=== PATIENT | female | born 1970 | race Caucasian/White ===

== ENCOUNTER 2018-12-13 12:09 | Emergency (ER) | payer OTHER ==
[~2018-12-13] VITALS: Ht 167.6 cm; Wt 72.6 kg
[2018-12-13] MEDS ORDERED: ADDERALL XR 3030 MG PO (13:32)
[2018-12-13] MEDS ORDERED: OXYCODONE HCL15 MG PO (13:32)
[2018-12-13] MEDS ORDERED: NORCO 5-325 TA1 EAC1 PO (13:32)
[2018-12-13] MEDS ORDERED: IMITREX6 MG/0.5 M (13:33)
[2018-12-13] MEDS ORDERED: PHENERGAN 25 MG25 M1 PO (13:33)
[2018-12-13] MEDS ORDERED: IBUPROFEN 800800 MG PO (14:38)
[2018-12-13 15:13] VITALS: BP 128/76
--- NOTE | 2018-12-16 16:48 | EKG ---
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
== END 2018-12-13 15:13 | disposition home or self-care (01) ==
LOC: M.ERS 12:09
DX: G43.909 Migraine, unspecified, not intractable, without status migrainosus (principal); Z88.0 Allergy status to penicillin; Z88.1 Allergy status to other antibiotic agents; Z88.5 Allergy status to narcotic agent

== ENCOUNTER 2019-04-13 13:35 | Emergency (ER) | payer OTHER ==
[~2019-04-13] VITALS: Ht 167.6 cm; Wt 72.6 kg
[~2019-04-13 13:35] MED LIST: ADDERALL XR 3030 MG PO; IBUPROFEN 800800 MG PO; IMITREX6 MG/0.5 M; NORCO 5-325 TA1 EAC1 PO; OXYCODONE HCL15 MG PO; PHENERGAN 25 MG25 M1 PO
[2019-04-13 13:49] VITALS: BP 131/87
[2019-04-13] MEDS ORDERED: PROTONIX40 M3 PO (13:52)
[2019-04-13] MEDS ORDERED: NORCO 5-325 TA1 EAC1 PO (14:46)
== END 2019-04-13 14:53 | disposition home or self-care (01) ==
LOC: M.ERS 13:35
DX: S93.492A Sprain of other ligament of left ankle, initial encounter (principal); G43.909 Migraine, unspecified, not intractable, without status migrainosus; K21.9 Gastro-esophageal reflux disease without esophagitis; Z98.890 Other specified postprocedural states; Z86.73 Personal history of transient ischemic attack (TIA), and cerebral infarction without residual deficits; Z88.1 Allergy status to other antibiotic agents; Z88.6 Allergy status to analgesic agent; Z88.0 Allergy status to penicillin; X50.0XXA Overexertion from strenuous movement or load, initial encounter; Y93.02 Activity, running; Y92.89 Other specified places as the place of occurrence of the external cause; Y99.8 Other external cause status

== ENCOUNTER 2019-04-30 19:42 | Emergency (ER) | payer OTHER ==
[~2019-04-30] VITALS: Ht 165.1 cm; Wt 73.9 kg
[~2019-04-30 19:42] MED LIST changes: +PROTONIX40 M3 PO
[2019-04-30] MEDS ORDERED: PHENERGAN 25 MG25 M1 PO (20:20)
[2019-04-30] MEDS ORDERED: SUPER THERAVIT1 EACH PO (20:20)
[2019-04-30] MEDS ORDERED: CYCLOBENZAPRINE5 MG PO (21:42)
[2019-04-30 22:23] VITALS: BP 125/68
== END 2019-04-30 22:24 | disposition home or self-care (01) ==
LOC: M.ERS 19:42
DX: S43.491A Other sprain of right shoulder joint, initial encounter (principal); S20.211A Contusion of right front wall of thorax, initial encounter; M25.552 Pain in left hip; G43.909 Migraine, unspecified, not intractable, without status migrainosus; K21.9 Gastro-esophageal reflux disease without esophagitis; Z98.890 Other specified postprocedural states; Z88.6 Allergy status to analgesic agent; Z88.1 Allergy status to other antibiotic agents; Z88.0 Allergy status to penicillin; W10.8XXA Fall (on) (from) other stairs and steps, initial encounter; Y93.01 Activity, walking, marching and hiking; Y92.89 Other specified places as the place of occurrence of the external cause; Y99.8 Other external cause status

== ENCOUNTER 2019-08-01 12:14 | Emergency (ER) | payer OTHER ==
[~2019-08-01] VITALS: Ht 167.6 cm; Wt 70.3 kg
[~2019-08-01 12:14] MED LIST changes: +CYCLOBENZAPRINE5 MG PO; +SUPER THERAVIT1 EACH PO
[2019-08-01] MEDS ORDERED: ADVAIR 100-501 EACH INH (12:30)
[2019-08-01] MEDS ORDERED: ADDERALL 10 MG10 MG PO (12:30)
[2019-08-01] MEDS ORDERED: ADVIL200 M1 PO (12:31)
[2019-08-01] MEDS ORDERED: PROAIR HFA8.5 GM INH (12:31)
[2019-08-01 12:54] LABS: INFLUENZA A ANTIGEN Negative (Negative); INFLUENZA B ANTIGEN Negative (Negative)
[2019-08-01] MEDS ORDERED: MEDROLDOSEPACK PO (14:29)
[2019-08-01 14:44] VITALS: BP 137/87
--- NOTE | 2019-08-01 16:53 | EKG ---
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1970 Requested By: Bernadette Mortensen Order Number: [id number] MD: John Graham Measurements Intervals [place] Rate: 65 P: 64 [place]: 151 QRS: 38 QRSD: 123 T: 22 QT: 423 QTc: 440 Interpretive Statements Sinus rhythm Nonspecific intraventricular conduction delay Borderline T abnormalities, anterior leads Baseline wander in lead(s) V3,V5 Compared to ECG 12/13/2018 12:49:42 Intraventricular conduction delay now present T-wave abnormality still present Electronically Signed On 08-01-2019 16:51:48 CDT by John Graham [email or web address] <ELECTRONICALLY SIGNED> By: John Graham MD, FACC 08/01/19 1651 1252 1252 John Graham MD, FAC /EPI
== END 2019-08-01 14:45 | disposition home or self-care (01) ==
LOC: M.ERS 12:14
PROVIDERS: Physician Assistant
DX: B34.9 Viral infection, unspecified (principal); R09.82 Postnasal drip; J02.9 Acute pharyngitis, unspecified; G43.909 Migraine, unspecified, not intractable, without status migrainosus; K21.9 Gastro-esophageal reflux disease without esophagitis; Z88.1 Allergy status to other antibiotic agents; Z88.0 Allergy status to penicillin; Z88.5 Allergy status to narcotic agent; Z86.73 Personal history of transient ischemic attack (TIA), and cerebral infarction without residual deficits; Z79.899 Other long term (current) drug therapy

== ENCOUNTER 2020-04-24 17:07 | Emergency (ER) | payer OTHER ==
[~2020-04-24] VITALS: Ht 165.1 cm; Wt 67.1 kg
[~2020-04-24 17:07] MED LIST changes: +ADDERALL 10 MG10 MG PO; +ADVAIR 100-501 EACH INH; +ADVIL200 M1 PO; +MEDROLDOSEPACK PO; +PROAIR HFA8.5 GM INH
[2020-04-24] MEDS ORDERED: BUSPIRONE HCL10 MG PO (17:24)
[2020-04-24 17:55] LABS: INFLUENZA A ANTIGEN Negative (Negative); INFLUENZA B ANTIGEN Negative (Negative)
[2020-04-24 18:11] VITALS: BP 140/72
== END 2020-04-24 18:12 | disposition home or self-care (01) ==
LOC: M.ERS 17:07
PROVIDERS: Physician Assistant
DX: B34.9 Viral infection, unspecified (principal); Z20.828 Contact with and (suspected) exposure to other viral communicable diseases; G43.909 Migraine, unspecified, not intractable, without status migrainosus; K21.9 Gastro-esophageal reflux disease without esophagitis; Z79.899 Other long term (current) drug therapy; Z88.1 Allergy status to other antibiotic agents; Z88.0 Allergy status to penicillin; Z88.6 Allergy status to analgesic agent